=== PATIENT | female | born 1980 | race Caucasian/White ===

== ENCOUNTER 2017-05-26 05:55 | Day surgery (SDC) | payer OTHER ==
[2017-05-25 09:14] VITALS: BMI 25.9
[2017-05-26] VITALS (10 sets, daily range): BP systolic 104–119; BP diastolic 56–65; PULSE 64–88; RESP 16–20; Ht 170.2 cm; Wt 78.9 kg
[~2017-05-26] VITALS: Ht 170.2 cm; Wt 78.9 kg
[2017-05-26] MEDS ORDERED: CEFAZOLIN 1 GM INJ ONE ×2 (07:00→07:54)
[2017-05-26] MEDS ORDERED: PROPOFOL 20 ML ONE (07:38)
[2017-05-26] MEDS ORDERED: MIDAZOLAM 1 MG/ML 2 ML INJ ONE (07:38)
[2017-05-26] MEDS ORDERED: FENTAnyl 50 MCG/ML VIAL ONE (07:38)
[2017-05-26] MEDS ORDERED: ONDANSETRON 4 MG INJ ONE (07:38)
[2017-05-26] MEDS ORDERED: LIDOCAINE 2% (SDV) 5 ML INJ ONE (07:38)
[2017-05-26] MEDS ORDERED: DEXAMETHASONE 4 MG/ML 1 ML INJ ONE ×2 (07:39→08:00)
--- NOTE | 2017-05-26 07:51 | HPN ---
Date/Time of Note Date/Time of Note DATE: 05/26/17 TIME: 07:50 Interval H&P Admission Note Pt. seen H&P reviewed: No system changes MACHO HIGGINS DPM May 26, 2017 07:50
[2017-05-26] MEDS ORDERED: ACETAMINOPHEN 1000MG/100ML IV 100 ML ONE (07:52)
[2017-05-26] MEDS ORDERED: LIDOCAINE 1% (MPF) 30 ML INJ ONE (08:00)
[2017-05-26] MEDS ORDERED: BUPIVACAINE 0.25% (MPF) 30 ML INJ ONE (08:00)
[2017-05-26] MEDS ORDERED: FAMOTIDINE 20 MG INJ ONE (08:28)
[2017-05-26] MEDS ORDERED: BUPIVACAINE 0.5% (SDV) 30 ML INJ ONE (08:29)
[2017-05-26] MEDS ORDERED: POVIDONE IODINE 10% 28.4 GM OINT ONE (08:31)
[2017-05-26] MEDS ORDERED: KETOROLAC 30 MG INJ ONE (08:43)
[2017-05-26] MEDS ORDERED: HYDROmorphONE (0.2 MG/ML) 10ML SYG IV PRN ×2 (09:00)
[2017-05-26] MEDS ORDERED: ONDANSETRON 4 MG INJ IV PRN (09:00)
[2017-05-26] MEDS ORDERED: FENTAnyl 50 MCG/ML VIAL IV PRN ×2 (09:00)
[2017-05-26] MEDS ORDERED: DIPHENHYDRAMINE 50 MG INJ IV PRN (09:00)
[2017-05-26] MEDS ORDERED: MIDAZOLAM 1 MG/ML 2 ML INJ IV PRN (09:00)
--- NOTE | 2017-06-16 12:55 | PREOPHP ---
DATE OF ADMISSION: 05/26/2017 HISTORY OF PRESENT ILLNESS: The patient is being admitted to the hospital for elective foot surgery, palliative treatment has been unsuccessful. The patient is having pain on the 4th digit left and the 5th digit right. ALLERGIES: THE PATIENT HAS NO ALLERGIES TO ANY MEDICINE. MEDICATIONS: The patient denies taking medicine at the present time. REVIEW OF SYSTEMS: Negative for heart, lung, liver, kidney, and thyroid. The patient denies any history of diabetes and does not smoke or drink. See any other pertinent history by Dr. Pereira. PHYSICAL EXAMINATION: LOWER EXTREMITIES: Dorsalis pedis and posterior tibial equal and regular. NEUROLOGIC: Negative for pathology. DERMATOLOGIC: HD the right 5th and on the left 4th. MUSCULOSKELETAL/X-RAY FINDINGS: Hammertoe 4th left, hammertoe 5th right. FINAL DIAGNOSES: Hammertoe 5th right, hammertoe 4th left. Dictated By: Dilan Michaels DPM /leobardo/mark anthony /Document#: [id number] SARITA
--- NOTE | 2017-06-16 12:57 | OPR ---
OPERATIVE REPORT DATE OF OPERATION: 05/26/2017 PREOPERATIVE DIAGNOSIS: Fifth right hammertoe, fourth left. POSTOPERATIVE DIAGNOSIS: Fifth right hammertoe, fourth left. OPERATION PERFORMED: Hammertoe correction. Fifth right hammertoe correction. Fourth left hammertoe correction. SURGEON: Dilan Michaels DPM DESCRIPTION OF PROCEDURE:: The patient was brought to the surgical suite, placed in the supine position. The patient was under general anesthesia. The patient had a sterile prep and drape. Findings were consistent with the preop and postop diagnoses. The first incision was a dorsal longitudinal incision over the fifth digit on the right foot. Using sharp and blunt dissection, the incision was carried deep. No cautery was necessary. The longitudinal incision was made to open up the proximal IP joint. The head of the proximal phalanx was freed of its attachment and resected at its surgical neck. The area was cleansed. The preoperative condition having been relieved, the area was then subcutaneously coaptated using 3-0 Vicryl. The skin was then coaptated using 5-0 nylon. The area was injected with 0.5 percent Marcaine to prolong anesthesia. A dressing of half inch Steri-Strips, Betadine ointment, 4 x 4's impregnated with Betadine solution and Kye with an outer layer of Coban. Next, attention was turned to the left foot. A longitudinal incision was made over the fourth digit. Using sharp and blunt dissection, the incision was carried deep. The head of the proximal phalanx was freed of its attachment and resected at its surgical neck. The area was then cleansed. The preoperative condition having been relieved, the area was then subcutaneously coaptated with 3-0 Vicryl and the skin was coaptated with 5-0 nylon. The area was then injected with 0.5 percent Marcaine to prolong anesthesia. A dressing of half inch Steri-Strips, Betadine ointment, 4 x 4's impregnated with Betadine solution, and Kye with an outer later of Coban. The patient tolerated surgery well and was returned to the recovery room in satisfactory condition. Dictated By: Dilan Michaels DPM /leobardo/nigel /Document#: [id number] SARITA
== END 2017-05-26 09:42 | disposition home or self-care (01) ==
LOC: SDS 05:55 → EDBD 08:00 → SDS 09:42
PROVIDERS: ATTEND Podiatrist
DX: M20.41 Other hammer toe(s) (acquired), right foot (principal); M20.42 Other hammer toe(s) (acquired), left foot
CPT/HCPCS: 28285; 88304; 88311; J0131; J0690; J1100; J1170; J1885; J2250; J2405; J3010; Z7512; Z7610